=== PATIENT | female | born 1995 | race Two or more races ===

== ENCOUNTER → 2021-10-28 | Outpatient (CLI) | payer MEDICAID ==
[2021-10-28 09:45] LABS: Basophils # (auto) 0 10 ^3/uL (0-0.2); Basophils % (auto) 0.6 % (0.0-2.0); Eosinophils # (auto) 0.1 10 ^3/uL (0-0.8); Hematocrit 29.8 % (36.0-46.0); Hemoglobin 9.9 g/dL (12.2-16.2); Lymphocytes # (auto) 1.1 10 ^3/uL (0.4-5.4); Mean Corpuscular Hemoglobin 29.7 pg (28.0-32.0); Mean Corpuscular Hgb Conc. 33.2 g/dL (32.0-36.0); Mean Corpuscular Volume 89.5 fL (80.0-100.0); Monocytes # (auto) 0.3 10 ^3/uL (0-1.3); Monocytes % (auto) 5.5 % (0.0-12.0); Neutrophils # (auto) 4.3 10 ^3/uL (1.6-8.6); Neutrophils % (auto) 72.9 % (37.0-80.0); Nucleated Red Blood Cells % 0.2 %; Red Blood Cells 3.33 10^6/uL (4.0-5.20); Red Cell Distribution Width 14.4 % (11.8-14.3); White Blood Cell 5.9 10^3/uL (4.4-10.8)
[2021-10-28 10:21] LABS: Alcohol, Urine < 3.0 mg/dL (0-10); Amphetamine Screen, Urine NEGATIVE (NEGATIVE); Barbiturate Scree,Urine NEGATIVE (NEGATIVE); Benzodiazephine Screen, Urine NEGATIVE (NEGATIVE); Cannabinoid Screen, Urine NEGATIVE (NEGATIVE); Cocaine Screen, Urine NEGATIVE (NEGATIVE); Opiate Scree,Urine NEGATIVE (NEGATIVE); Phencyclidine Screen, Urine NEGATIVE (NEGATIVE)
[2021-10-29 06:06] LABS: RPR Non Reactive (Non Reactive)
== END | disposition home or self-care (01) ==
LOC: LAB 08:45
PROVIDERS: ATTEND Obstetrics & Gynecology
DX: Z34.80 Encounter for supervision of other normal pregnancy, unspecified trimester (principal); Z11.3 Encounter for screening for infections with a predominantly sexual mode of transmission; Z31.430 Encounter of female for testing for genetic disease carrier status for procreative management; N39.0 Urinary tract infection, site not specified
CPT/HCPCS: 36415; 80307; 83036; 84112; 84702; 85025; 86592; 86703; 86762; 86850; 86900; 86901; 87086; 87340

== ENCOUNTER 2021-11-30 07:58 | Inpatient (IN) | payer MEDICAID ==
[~2021-11-30] VITALS: Ht 160 cm; Wt 63.5 kg
[2021-11-30] VITALS (7 sets, daily range): BP systolic 110–138; BP diastolic 55–74
[2021-11-30] MEDS ORDERED: BUTORPHANOL TARTRATE 2 MG/1 ML VIAL IV PRN ×2 (09:15)
[2021-11-30] MEDS ORDERED: PENICILLIN G POT 5MIL/D5 50ML 50 ML IV ONE (09:15)
[2021-11-30] MEDS ORDERED: LACT. RINGERS/OXYTOCIN 20UNITS 500 ML IV ONE ×2 (09:15→09:45)
[2021-11-30] MEDS ORDERED: PHISODERM TOP SOLN 240ML BTL TOP PRN (09:15)
[2021-11-30] MEDS ORDERED: LACTATED RINGER'S 1,000 ML IV SCH (09:15)
[2021-11-30] MEDS ORDERED: PROMETHAZINE HCL 25 MG/ML 1ML IV PRN (09:15)
[2021-11-30] MEDS ORDERED: LIDOCAINE 2%HCL (LOCAL ANESTH.) INJ 20ML MDV IJ PRN (09:15)
[2021-11-30] MEDS: WITCH HAZEL-GLYCERIN PAD TOP PRN (09:20)
[2021-11-30] MEDS: DERMOPLAST 60ML BOTTLE TOP PRN (09:21)
[2021-11-30 09:47] LABS: Basophils # (auto) 0.1 10 ^3/uL (0-0.2); Basophils % (auto) 1.8 % (0.0-2.0); Eosinophils # (auto) 0 10 ^3/uL (0-0.8); Eosinophils % (auto) 0.4 % (0.0-7.0); Hematocrit 34.6 % (36.0-46.0); Hemoglobin 11.6 g/dL (12.2-16.2); Lymphocytes # (auto) 1.1 10 ^3/uL (0.4-5.4); Lymphocytes % (auto) 13.6 % (10.0-50.0); Mean Corpuscular Hemoglobin 29.7 pg (28.0-32.0); Mean Corpuscular Hgb Conc. 33.4 g/dL (32.0-36.0); Mean Corpuscular Volume 89.1 fL (80.0-100.0); Monocytes # (auto) 0.3 10 ^3/uL (0-1.3); Monocytes % (auto) 4.4 % (0.0-12.0); Neutrophils # (auto) 6.2 10 ^3/uL (1.6-8.6); Neutrophils % (auto) 79.8 % (37.0-80.0); Nucleated Red Blood Cells % 0.2 %; Red Blood Cells 3.89 10^6/uL (4.0-5.20); Red Cell Distribution Width 17.8 % (11.8-14.3); White Blood Cell 7.8 10^3/uL (4.4-10.8)
[2021-11-30 09:51] LABS: Urine Bacteria FEW /hpf (None Seen); Urine Blood TRACE /uL (Negative); Urine Specific Gravity 1.011 (1.001-1.035); Urine WBC 3 /hpf (0 - 5)
[2021-11-30 09:58] LABS: Potassium 3.9 mmol/L (3.5-5.1)
[2021-11-30 10:00] LABS: INR 0.93 (0.9-1.15)
[2021-11-30 10:02] LABS: Alcohol, Urine < 3.0 mg/dL (0-10); Amphetamine Screen, Urine NEGATIVE (NEGATIVE); Barbiturate Scree,Urine NEGATIVE (NEGATIVE); Benzodiazephine Screen, Urine NEGATIVE (NEGATIVE); Cannabinoid Screen, Urine NEGATIVE (NEGATIVE); Cocaine Screen, Urine NEGATIVE (NEGATIVE); Opiate Scree,Urine NEGATIVE (NEGATIVE); Phencyclidine Screen, Urine NEGATIVE (NEGATIVE)
[2021-11-30 10:04] LABS: Albumin 2.8 g/dL (3.4-5.0); BUN/Creatinine Ratio 12.3; Bilirubin, Total 0.2 mg/dL (0.2-1.0); Calcium 8.6 mg/dL (8.5-10.1); Total Protein 7.1 g/dL (6.4-8.2)
[2021-11-30] MEDS ORDERED: LACT. RINGERS/OXYTOCIN 20UNITS 1,000 ML IV SCH (10:30)
[2021-11-30] MEDS ORDERED: miSOPROStol 100 mcg TAB PR PRN (12:15)
[2021-11-30] MEDS ORDERED: miSOPROStol 100 mcg TAB SL PRN (12:15)
[2021-11-30] MEDS ORDERED: METHYLERGONOVINE MALEATE 0.2 MG/ML AMP IM PRN (12:15)
[2021-11-30] MEDS ORDERED: CARBOPROST TROMETHAMINE 250 MCG/1ML VIAL IM PRN (12:15)
[2021-11-30] MEDS ORDERED: ONDANSETRON HCL 4 MG/2 ML VIAL ONE (12:21)
[2021-11-30] MEDS ORDERED: fentaNYL CITRATE 100 MCG/2 ML VL IM ONE (13:00)
[2021-11-30] MEDS ORDERED: PENICILLIN G POTASSIUM 2,500,000 UNITS in D5W 5% 50 ML IV SCH (13:15)
[2021-11-30] MEDS ORDERED: fentaNYL CITRATE 100 MCG/2 ML VL IV ONE (13:15)
[2021-11-30] MEDS ORDERED: ONDANSETRON HCL 4 MG/2 ML VIAL IM ONE (14:45)
[2021-11-30] MEDS ORDERED: ONDANSETRON ODT 4 MG TAB PO PRN (15:00)
[2021-11-30] MEDS ORDERED: TRANEXAMIC ACID 1,000 MG in SODIUM CHL 0.9% 100 ML IV ONE (15:30)
[2021-11-30] MEDS: ceFAZolin 1GM/50ML 50 ML IV SCH (17:05)
[2021-11-30] MEDS: IBUPROFEN 600 MG TAB PO PRN (17:50)
[2021-11-30 22:23] LABS: Basophils # (auto) 0.1 10 ^3/uL (0-0.2); Basophils % (auto) 0.5 % (0.0-2.0); Eosinophils # (auto) 0 10 ^3/uL (0-0.8); Eosinophils % (auto) 0.1 % (0.0-7.0); Hemoglobin 9.9 g/dL (12.2-16.2); Lymphocytes # (auto) 1.5 10 ^3/uL (0.4-5.4); Mean Corpuscular Hemoglobin 29.5 pg (28.0-32.0); Mean Corpuscular Hgb Conc. 33.1 g/dL (32.0-36.0); Mean Corpuscular Volume 89.1 fL (80.0-100.0); Monocytes # (auto) 0.7 10 ^3/uL (0-1.3); Monocytes % (auto) 5.4 % (0.0-12.0); Neutrophils # (auto) 11.3 10 ^3/uL (1.6-8.6); Nucleated Red Blood Cells % 0.1 %; Red Blood Cells 3.37 10^6/uL (4.0-5.20); Red Cell Distribution Width 17.3 % (11.8-14.3); White Blood Cell 13.7 10^3/uL (4.4-10.8)
[2021-11-30] MEDS: FERROUS SULFATE 325mg EC TAB PO SCH (23:17)
[2021-12-01] MEDS: ceFAZolin 1GM/50ML 50 ML IV SCH ×2 (00:17→07:35)
[2021-12-01] MEDS: ACETAMINOPHEN 325 MG TAB PO PRN ×2 (00:18→23:03)
[2021-12-01 02:57] VITALS: BP 91/53
[2021-12-01 07:15] VITALS: BP 96/67
[2021-12-01] MEDS: FERROUS SULFATE 325mg EC TAB PO SCH ×2 (07:35→18:14)
[2021-12-01 08:06] LABS: RPR Non Reactive (Non Reactive)
[2021-12-01 11:00] VITALS: BP 100/77
[2021-12-01 15:10] VITALS: BP 109/79
[2021-12-01] MEDS: IBUPROFEN 600 MG TAB PO PRN (15:30)
[2021-12-01] MEDS ORDERED: miSOPROStol 100 mcg TAB PO ONE (18:42)
[2021-12-01 19:30] VITALS: BP 99/65
[2021-12-01] MEDS ORDERED: FERROUS SULFATE 325mg EC TAB PO SCH (20:00)
[2021-12-01 23:00] VITALS: BP 95/55
[2021-12-02 03:16] VITALS: BP 102/65
[2021-12-02] MEDS: IBUPROFEN 600 MG TAB PO PRN (06:52)
[2021-12-02 07:30] VITALS: BP 114/73
[2021-12-02] MEDS: FERROUS SULFATE 325mg EC TAB PO SCH (08:32)
[2021-12-02] MEDS ORDERED: DOCU-94 PO (09:35)
[2021-12-02] MEDS ORDERED: IBU600T PO (09:35)
[2021-12-02] MEDS ORDERED: FERR-20 PO (09:35)
[2021-12-02] MEDS ORDERED: IBUP600T28 PO (09:36)
[2021-12-02 11:00] VITALS: BP 109/67
[2021-12-02] MEDS: DERMOPLAST 60ML BOTTLE TOP PRN (11:33)
[2021-12-02] MEDS: WITCH HAZEL-GLYCERIN PAD TOP PRN (11:33)
== END 2021-12-02 11:45 | disposition home or self-care (01) | DRG 560 ==
LOC: LDRP 07:58 → OBSVTOIN 09:00 → LDRP 19:58
PROVIDERS: ADMIT Obstetrics & Gynecology; ATTEND Obstetrics & Gynecology
PROC: 10E0XZZ Delivery of Products of Conception, External Approach (ICD-10-PCS; principal; 2021-11-30)
PROC: 10D17Z9 Manual Extraction of Products of Conception, Retained, Via Natural or Artificial Opening (ICD-10-PCS; 2021-11-30)
PROC: 30233N1 Transfusion of Nonautologous Red Blood Cells into Peripheral Vein, Percutaneous Approach (ICD-10-PCS; 2021-11-30)
DX: O72.1 Other immediate postpartum hemorrhage (principal); Z37.0 Single live birth; Z3A.38 38 weeks gestation of pregnancy
CPT/HCPCS: 36415; 36430; 59025; 59409; 80053; 80307; 81001; 81002; 85025; 85610; 85730; 86592; 86850; 86900; 86901; 86920; 94760; 96360; 96361; 96365; 96372; 96374; 96375; G0378; J0690; J2405; J2540; J2590; J7060